=== PATIENT | male | born 1965 | race Caucasian/White ===

== ENCOUNTER 2021-11-13 20:18 | Observation (INO) | payer BC, OTHER ==
[~2021-11-13] VITALS: Ht 185.4 cm; Wt 136.1 kg
[2021-11-13 20:23] VITALS: BP 149/115
--- NOTE | 2021-11-13 20:24 | NUR ---
Patient placed on bed 7.
--- NOTE | 2021-11-13 20:26 | NUR ---
Dr. Pinto examining patient at bedside.
[2021-11-13] MEDS ORDERED: ALBUTEROL SULFATE/IPRATROPIU 3 ML SOL IH ONE (20:30)
--- NOTE | 2021-11-13 20:32 | NUR ---
X-Ray at bedside.
--- NOTE | 2021-11-13 21:06 | NUR ---
NAVARRO RENEE/ RT AWARE
--- NOTE | 2021-11-13 21:40 | NUR ---
NEB TX DONE PT TOLERATED WELL
[2021-11-13] MEDS ORDERED: MORPHINE SULFATE 4 MG/ML SYR IVP ONE ×3 (21:45→23:45)
[2021-11-13] MEDS ORDERED: NACL 0.9% 1,000 ML IV ONE (22:00)
--- NOTE | 2021-11-13 22:02 | NUR ---
spoke to md ashley about bp. stated to hold morphine at this time.
--- NOTE | 2021-11-13 22:30 | NUR ---
Dr. Ulloa examining patient.
--- NOTE | 2021-11-13 22:33 | NUR ---
DR VALLE AT BEDSIDE
[2021-11-13 22:53] LABS: BASOPHILS # (AUTO) 0.1 K/uL (0.00-0.22); BASOPHILS % (AUTO) 0.6 % (0.0-2.0); EOSINOPHILS % (AUTO) 0.3 % (0.0-4.0); HEMOGLOBIN 8.6 g/dL (12.0-18.0); LYMPHOCYTES # (AUTO) 2.3 K/uL (2.0-11.5); LYMPHOCYTES % (AUTO) 20.7 % (20.5-51.1); MEAN CORPUSCULAR HEMOGLOBIN 32 pg (27-31); MEAN CORPUSCULAR HGB CONC 34 g/dL (33-37); MONOCYTES # (AUTO) 1.1 K/uL (0.8-1.0); MONOCYTES % (AUTO) 10.2 % (1.7-9.3); NEUTROPHILS # (AUTO) 7.4 K/uL (1.8-7.7); NEUTROPHILS % (AUTO) 68.2 % (42.2-75.2); PLATELET COUNT (AUTO) 155 K/uL (140-450); RED BLOOD CELL COUNT(AUTO) 2.72 MIL/uL (4.20-6.10); RED CELL DISTRIBUTION WIDTH 15.1 % (11.6-13.7); WHITE BLOOD COUNT (AUTO) 10.9 K/uL (4.8-10.8)
--- NOTE | 2021-11-13 23:18 | NUR ---
56YR OLD MALE BIB EMS C/O ABD/BACK PAIN. S/P MICRO LAMINECTOMY YESTERDAY. PT STATES BEING SOB WITH CP ALL DAY. HX OF COPD. PT IS ON BEDSIDE TAILER OUT. HOB ELEVATED. SPO2 96% 3L NC. SKIN WARM DRY AND INTACT. PT IS A&OX4. BED AT LOWEST POSITION SIDE RAILS UPX2 NKDA COPD HTN
[2021-11-13 23:34] LABS: ALBUMIN 2.7 g/dL (3.4-5.0); ANION GAP 12.8 (8-16); ASPARTATE AMINOTRANSFERASE 25 U/L (15-37); CARBON DIOXIDE 24.4 mmol/L (21-32); CHLORIDE 102 mmol/L (98-107); CREATININE 1.2 mg/dL (0.6-1.3); GFR ARICAN-AMERICAN 81 mL/min (>90); GLUCOSE 105 mg/dL (74-106); POTASSIUM 4.2 mmol/L (3.5-5.1); SODIUM SERUM 135 mmol/L (136-145); TOTAL BILIRUBIN 0.7 mg/dL (0.0-1.0); UREA NITROGEN, BLOOD 22 mg/dL (7-18)
[2021-11-14] MEDS ORDERED: fentaNYL citrate 0.05 MG/ML VIAL IVP ONE ×2 (00:15→05:25)
--- NOTE | 2021-11-14 00:57 | NUR ---
Patient taken to CT scan via gurney.
--- NOTE | 2021-11-14 01:23 | NUR ---
PT BACK FROM CT
--- NOTE | 2021-11-14 03:51 | NUR ---
PENDING CT ABD RESULTS FOR ADMISSION ORDERS. PT IS RESTING IN BED ON BEDSIDE MAINTAINER PLANT. RESP EVEN AND UNLABORED. 07/20 PAIN LEVEL. PT IS TALKING IN FULL SENTENCES DENIES CP OR SOB. HOB ELEVEATED
--- NOTE | 2021-11-14 03:52 | NUR ---
PENDING CT ABD RESULTS FOR ADMISSION ORDERS. PT IS RESTING IN BED ON BEDSIDE COMPOUND MIXER. RESP EVEN AND UNLABORED. 07/20 PAIN LEVEL. PT IS TALKING IN FULL SENTENCES DENIES CP OR SOB. HOB ELEVEATED
--- NOTE | 2021-11-14 05:31 | NUR ---
PAIN LEVEL 10/10. PT REMEDICATED WILL CONTINUE TO MONITOR PT PAIN LEVEL .
[2021-11-14] MEDS ORDERED: POTASSIUM CHLORIDE 10 MEQ TABER PO PRN (05:45)
[2021-11-14] MEDS ORDERED: ONDANSETRON 4 MG/2 ML VIAL IVP PRN (05:45)
[2021-11-14] MEDS ORDERED: MAG SULF 2000 MG/WATER PREMIX 50 ML IV PRN (05:45)
[2021-11-14] MEDS ORDERED: ACETAMINOPHEN 325 MG TAB PO PRN (05:45)
[2021-11-14] MEDS ORDERED: LORazepam 1 MG TAB PO PRN (05:45)
[2021-11-14] MEDS ORDERED: MAGNESIUM OXIDE 400 MG TAB PO PRN (05:45)
[2021-11-14] MEDS ORDERED: KCL 20 MEQ/WATER INJ PREMIX 200 ML IV PRN (05:45)
[2021-11-14] MEDS ORDERED: ZOLPIDEM 5 MG TAB PO PRN (05:45)
[2021-11-14] MEDS ORDERED: HYDROcodone/APAP 5/325 MG 1 TAB TAB PO PRN (05:45)
[2021-11-14] MEDS ORDERED: TRAM50TA1 PO (05:46)
[2021-11-14] MEDS ORDERED: MULT-2253 PO (05:47)
[2021-11-14] MEDS ORDERED: PANT40EC PO (05:47)
[2021-11-14] MEDS ORDERED: FLUO10CA21 PO (05:49)
[2021-11-14] MEDS ORDERED: DIVA500T1 PO (05:50)
[2021-11-14] MEDS ORDERED: BUS5 PO (05:52)
--- NOTE | 2021-11-14 06:12 | NUR ---
The patient's care was reviewed and supervised by Yandy Barrios RN.
--- NOTE | 2021-11-14 06:12 | NUR ---
Patient will be admitted to care of Dr. Hayes. Admited to M/S. Will go to room 125A. Belongings list completed. Report to KATHERINE Hardin.
--- NOTE | 2021-11-14 06:45 | NUR ---
RECEIVED PATIENT FROM ER NURSE VIA LATASHA. PT IS AOX4, ON 3 LNC. PIV ONRIGHT AC 18 G INTACT AND PATENT. VITAL SIGNS WNL. NO DISTRESS NOTED
--- NOTE | 2021-11-14 07:20 | NUR ---
RECEIVED BEDSIDE REPORT FROM [facility] KATHERINE REED FOR CONTINUITY OF CARE. PT IS A&OX4 AND IS CURRENTLY STATING THAT HE HAS PAIN IN HIS ABDOMINAL REGION 09/19. PT HAS INCISIONS ON THE LOWER ABDOMEN WHICH ARE INTACT AND HAVE MINIMAL BLOOD PRESENT, COVERED WITH A CLEAR DRESSING. PT WILL BE MEDICATED WITH PRN PAIN MEDS AVAILABLE. PT HAS AN 18G IV ON THE RIGHT AC WHICH IS PATENT AND INTACT, SALINE LOCKED. PT IS ON 3L O2 VIA NC, SATING AT 97%. PT ORIENTED TO CALL LIGHT. PT IS IN LOWEST POSITION IN BED, AND SAFETY MEASURES ARE IN PLACE.
[2021-11-14 08:00] VITALS: BP 112/59
[2021-11-14] MEDS: DOCUSATE SODIUM 100 MG GELCAP PO SCH (08:27)
[2021-11-14] MEDS: MORPHINE SULFATE 4 MG/ML SYR IVP PRN ×3 (08:28→19:32)
--- NOTE | 2021-11-14 08:30 | NUR ---
GAVE PRN MORPHINE FOR PTS PAIN 8/10 IN THE LOWER ABDOMINAL REGION.
--- NOTE | 2021-11-14 09:30 | NUR ---
PT STATES PAIN IS MANAGEABLE AT 3/10 AT THIS TIME. WILL CONTINUE TO MONITOR PAIN LEVEL.
--- NOTE | 2021-11-14 11:18 | NUR ---
PATIENT HAS BEEN SCREENED AND CATEGORIZED LOW NUTRITION RISK. PATIENT WILL BE SEEN WITHIN 7 DAYS OF ADMISSION. 11/14/21-11/21/[address]
--- NOTE | 2021-11-14 14:32 | NUR ---
DR. SMITH IN TO SEE TO SEE PT. POSSIBLE DISCHARGE TOMORROW. PT COMPLAINED OF 8/10 LOWER ABDOMINAL AND LOWER BACK PAIN. MEDICATED PRN MORPHINE.
[2021-11-14 16:00] VITALS: BP 103/57
--- NOTE | 2021-11-14 16:00 | NUR ---
VISUALLY ASSESSED PT, WHICH IS CURRENTLY RESTING COMFORTABLY WITH NO S/S OF DISTRESS. WILL ASSESS FOR PRESENCE OF PAIN AT A LATER TIME.
[2021-11-14] MEDS: traMADol 50 MG TAB PO SCH (17:58)
--- NOTE | 2021-11-14 18:00 | NUR ---
GAVE PT TRAMADOL FOR PAIN 5/10 IN ABDOMINAL INCISIONS. WILL REASSESS FURTHER
--- NOTE | 2021-11-14 19:25 | NUR ---
ENDORSED PT TO [facility] KATHERINE HAMMOND. PT IN STABLE CONDITION.
--- NOTE | 2021-11-14 19:26 | NUR ---
RECD. RESTING IN BED, AWAKE, A/OX4 OBESE. RESPIRATION EVEN AND UNLABORED. ON AT 3 LITERS VIA N/C. WATCHING TV. IVB SALINE LOCK AT THE LEFT AC PATENT AND INTACT. INCISION IN THE ABDOMEN WITH TEGADERM DRY AND CLEAN, OPEN TO AIR. AMBULATORY TO THE BR. PAIN IN THE ABDOMEN 08/19. WILL MEDICATE PER MD ORDER.
--- NOTE | 2021-11-14 19:32 | NUR ---
PT IS STILL IN PAIN 09/19, ADMINISTERED MORPHINE PRN
--- NOTE | 2021-11-14 19:45 | NUR ---
DISCUSSED AND REVIEWED PATIENT PLAN OF CARE WITH JOSE EDUARDO KING.
--- NOTE | 2021-11-14 20:30 | NUR ---
ON BED, HAVING SOB DUE TO AMBULATING TO THE BR TO VOID. PUT BACK 02 CANNULA. ADVISED TO CALL NURSE WHENEVER NEEDING HELP TO AMBULATE. VERBALIZED UNDERSTANDING.
[2021-11-14] MEDS: DIVALPROEX 500 MG TABEC PO SCH (21:07)
[2021-11-14] MEDS: busPIRone 5 MG TAB PO SCH (21:07)
--- NOTE | 2021-11-14 21:07 | NUR ---
SCHEDULED MEDICATIONS ADMINISTERED. TOLERATED WELL.
[2021-11-15 00:05] VITALS: BP 114/68
[2021-11-15] MEDS: MORPHINE SULFATE 4 MG/ML SYR IVP PRN ×3 (00:07→14:46)
--- NOTE | 2021-11-15 00:07 | NUR ---
COMPLAINED OF ABDOMINAL PAIN 10/20. MEDICATED WITH MORPHINE PER MD ORDER BY CHARGE NURSE ANJEL.
--- NOTE | 2021-11-15 02:00 | NUR ---
SLEEPING COMFORTABLY IN BED. RESPIRATION EVEN AND UNLABORED.
[2021-11-15 04:00] VITALS: BP 112/65
--- NOTE | 2021-11-15 04:00 | NUR ---
ON SUPINE POSITION, STILL SLEEPING COMFORTABLY.
[2021-11-15 05:43] LABS: BASOPHILS % (AUTO) 0.5 % (0.0-2.0); EOSINOPHILS # (AUTO) 0.1 K/uL (0-0.4); EOSINOPHILS % (AUTO) 1.6 % (0.0-4.0); HEMATOCRIT 23.7 % (36-52); LYMPHOCYTES % (AUTO) 23.3 % (20.5-51.1); MEAN CORPUSCULAR HEMOGLOBIN 32 pg (27-31); MEAN CORPUSCULAR HGB CONC 34 g/dL (33-37); MEAN CORPUSCULAR VOLUME 93.2 fL (80-94); MONOCYTES % (AUTO) 12.3 % (1.7-9.3); NEUTROPHILS # (AUTO) 5.3 K/uL (1.8-7.7); NEUTROPHILS % (AUTO) 62.3 % (42.2-75.2); PLATELET COUNT (AUTO) 152 K/uL (140-450); RED BLOOD CELL COUNT(AUTO) 2.54 MIL/uL (4.20-6.10); RED CELL DISTRIBUTION WIDTH 15.5 % (11.6-13.7); WHITE BLOOD COUNT (AUTO) 8.5 K/uL (4.8-10.8)
[2021-11-15 05:47] LABS: ANION GAP 11.4 (8-16); CARBON DIOXIDE 27.9 mmol/L (21-32); POTASSIUM 4.3 mmol/L (3.5-5.1)
--- NOTE | 2021-11-15 06:30 | NUR ---
CHECKED PATIENT, COMFORTABLY ASLEEP IN BED. RESPIRATION EVEN AND UNLABORED. CALL LIGHT IN REACH.
--- NOTE | 2021-11-15 07:20 | NUR ---
RECEIVED BEDSIDE REPORT FROM [facility] KATHERINE HAMMOND FOR CONTINUITY OF CARE. PT IS A&OX4. PT RESTING WITH NO S/S OF DISTRESS. PT HAS INCISIONS ON THE LOWER ABDOMEN WHICH ARE INTACT AND HAVE MINIMAL BLOOD PRESENT, COVERED WITH A CLEAR DRESSING. PT HAS A 20G IV ON THE LEFT AC WHICH IS PATENT AND INTACT, SALINE LOCKED. PT IS ON 3L O2 VIA NC, SATING AT 97%. PT IS IN LOWEST POSITION IN BED, AND SAFETY MEASURES ARE IN PLACE.
--- NOTE | 2021-11-15 07:25 | NUR ---
ABLE TO SLEEP WELL. NO RESPIRATORY DISTRESS NOTED DURING THE SHIFT. ENDORSED TO AM SHIFT NURSE FOR CONTINUITY OF CARE.
[2021-11-15] MEDS: DOCUSATE SODIUM 100 MG GELCAP PO SCH (08:24)
[2021-11-15] MEDS: traMADol 50 MG TAB PO SCH ×2 (08:25→13:00)
[2021-11-15] MEDS: DIVALPROEX 500 MG TABEC PO SCH (08:25)
[2021-11-15] MEDS ORDERED: PANTOPRAZOLE 40 MG TABEC PO SCH (09:00)
[2021-11-15] MEDS ORDERED: FLUoxetine 10 MG CAP PO SCH (09:00)
[2021-11-15] MEDS: busPIRone 5 MG TAB PO SCH (09:54)
--- NOTE | 2021-11-15 10:10 | NUR ---
PT STATED PAIN 7/10 IN ABDOMINAL REGION WHERE INCISIONS ARE PRESENT. ADMINISTERED PRN MORPHINE. WILL FURTHER ASSESS FOR PAIN MANAGEMENT.
--- NOTE | 2021-11-15 10:22 | NUR ---
DC PLANNING SW MET WITH PATIENT AT BEDSIDE TO COMPLETE ASSESSMENT. PATIENT REPORTS RESIDING AT HOME WITH HIS PARTNER AT THE ADDRESS LISTED ON FILE. PATIENT IDENTIFIED MARIAA OROSCO, DAUGHTER, AND KENY JOSEPH, DAUGHTER, EMERGENCY CONTACT. PATIENT DENIES AD IN PLACE AND DECLINED AD OFFERED BY JOSE. PATIENT REPORTS MEETING WITH PCP NEEDED, LAST VISIT; 2 MONTHS AGO. PATIENT DENIES BARRIER IN ACCESSING NEEDED MEDICATIONS AND REPORTS RECEIVING MEDICATION FROM [facility] IN [place], WHEN NEEDED. PATIENT REPORTS BEING AMBULATORY WITH DME ASSISTANCE; FWW, CANE. PATIENT COMPLETES ADL'S INDEPENDENTLY. PATIENT REPORTS MENTAL HEALTH HX OF BIPOLAR D/O. PATIENT REPORTS MEETING WITH PSYCHIATRIST CHRISTAL TWO MONTHS, PATIENT REPORTS HAVING A TELEPHONE APPT 11/14. 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 PATIENT REPORTS DC PLAN IS TO RETURN HOME WHEN MEDICALLY STABLE. PATIENT REPORT HE WILL ARRANGE FOR TRANSPORTATION WITH INSURANCE PROVIDER. SW INQUIRED ON RESOURCES NEED, PATIENT DECLINED.
--- NOTE | 2021-11-15 11:10 | NUR ---
ASSESSED PTS PAIN, PT STATED 3/10 PAIN CURRENTLY. PAIN IS BEING WELL MANAGED, PT RESTING W/O S/S OF DISTRESS.
[2021-11-15 14:00] VITALS: BP 113/73
== END 2021-11-15 15:29 | disposition home or self-care (01) ==
LOC: MED 20:18 → MMU 11-14 05:45
PROVIDERS: ADMIT Hospitalist; ATTEND Hospitalist
DX: M43.22 Fusion of spine, cervical region (principal); Z20.822 Contact with and (suspected) exposure to COVID-19; E66.01 Morbid (severe) obesity due to excess calories; F31.9 Bipolar disorder, unspecified; J44.9 Chronic obstructive pulmonary disease, unspecified; E11.9 Type 2 diabetes mellitus without complications; I10 Essential (primary) hypertension; F17.200 Nicotine dependence, unspecified, uncomplicated; Z79.899 Other long term (current) drug therapy
CPT/HCPCS: 36415; 71045; 71275; 74174; 80048; 80053; 84484; 85025; 85379; 87081; 87426; 93005; 94760; 96361; 96372; 96374; 96375; 96376; 99285; G0378; J1644; J2270; J3010; Q0092; Q9967

== ENCOUNTER 2023-01-16 10:19 | Inpatient (IN) | payer OTHER ==
[~2023-01-16] VITALS: Ht 185.4 cm; Wt 131.5 kg
[2023-01-16] VITALS (11 sets, daily range): BP systolic 118–130; BP diastolic 74–89; PULSE 85–111; RESP 18–26; TEMP 97.1–98.4; O2SAT 90–96
[~2023-01-16 10:19] MED LIST: BUS5 PO; DIVA500T1 PO; FLUO10CA21 PO; MULT-2253 PO; PANT40EC PO; TRAM-748 PO
[2023-01-16] MEDS ORDERED: ALBUTEROL SULFATE/IPRATROPIU 3 ML SOL IH ONE ×5 (10:45→13:35)
[2023-01-16] MEDS ORDERED: methylPREDNISolone SS 125 MG/2 ML VIAL IVP ONE (11:00)
[2023-01-16] MEDS ORDERED: MAG SULF 2000 MG/WATER PREMIX 50 ML IV ONE (11:00)
[2023-01-16] MEDS ORDERED: FUROSEMIDE 40 MG/4 ML VIAL IVP ONE (11:00)
[2023-01-16 11:37] LABS: BASOPHILS # (AUTO) 0.1 K/uL (0.00-0.22); BASOPHILS % (AUTO) 0.5 % (0.0-2.0); EOSINOPHILS # (AUTO) 0.7 K/uL (0-0.4); EOSINOPHILS % (AUTO) 5.7 % (0.0-4.0); HEMATOCRIT 34.3 % (36-52); HEMOGLOBIN 10.4 g/dL (12.0-18.0); LYMPHOCYTES # (AUTO) 3.3 K/uL (2.0-11.5); LYMPHOCYTES % (AUTO) 27.4 % (20.5-51.1); MEAN CORPUSCULAR HEMOGLOBIN 24 pg (27-31); MEAN CORPUSCULAR HGB CONC 30 g/dL (33-37); MEAN CORPUSCULAR VOLUME 78.6 fL (80-94); MONOCYTES % (AUTO) 8.3 % (1.7-9.3); NEUTROPHILS # (AUTO) 6.9 K/uL (1.8-7.7); NEUTROPHILS % (AUTO) 58.1 % (42.2-75.2); PLATELET COUNT (AUTO) 248 K/uL (140-450); RED BLOOD CELL COUNT(AUTO) 4.36 MIL/uL (4.20-6.10); RED CELL DISTRIBUTION WIDTH 22.8 % (11.6-13.7); WHITE BLOOD COUNT (AUTO) 11.9 K/uL (4.8-10.8)
[2023-01-16 11:47] LABS: ANION GAP 6.4 (8-16); CARBON DIOXIDE 31.6 mmol/L (21-32)
[2023-01-16 11:59] LABS: ALANINE AMINOTRANSFERASE 29 U/L (12-78); ALBUMIN 2.8 g/dL (3.4-5.0); ALKALINE PHOSPHATASE 73 U/L (50-136); ASPARTATE AMINOTRANSFERASE 16 U/L (15-37); BILIRUBIN,DIRECT 0.1 mg/dL (0.0-0.3); TOTAL BILIRUBIN 0.3 mg/dL (0.0-1.0); TOTAL PROTEIN, SERUM 6.3 g/dL (6.4-8.2)
[2023-01-16] MEDS ORDERED: AZITHROMYCIN 500 MG in DEXTROSE 5% 250 ML IV ONE (12:00)
[2023-01-16] MEDS ORDERED: LORazepam 2 MG/ML VIAL IVP ONE (12:15)
[2023-01-16] MEDS ORDERED: cefTRIAXone 1,000 MG VIAL ONE (12:18)
[2023-01-16] MEDS ORDERED: AZITHROMYCIN 500 MG INJ VIAL IV ONE (12:18)
[2023-01-16 13:12] LABS: FLU A ANTIGEN negative (NEGATIVE); FLU B ANTIGEN NEGATIVE (NEGATIVE)
[2023-01-16 13:32] LABS: RSV NEGATIVE (NEGATIVE)
[2023-01-16] MEDS ORDERED: ALBUTEROL SULFATE/IPRATROPIU 3 ML SOL IH SCH (13:35)
[2023-01-16] MEDS ORDERED: POTASSIUM CHLORIDE 10 MEQ TABER PO PRN (14:25)
[2023-01-16] MEDS ORDERED: ACETAMINOPHEN 325 MG TAB PO PRN (14:25)
[2023-01-16] MEDS ORDERED: DOCUSATE SODIUM 100 MG GELCAP PO PRN (14:25)
[2023-01-16] MEDS ORDERED: MAG SULF 2000 MG/WATER PREMIX 50 ML IV PRN (14:25)
[2023-01-16] MEDS ORDERED: ZOLPIDEM 10 MG TAB PO PRN (14:25)
[2023-01-16] MEDS ORDERED: ONDANSETRON 4 MG/2 ML VIAL IVP PRN (14:25)
[2023-01-16] MEDS: ALBUTEROL SULFATE/IPRATROPIU 3 ML SOL IH SCH ×2 (19:51→22:53)
[2023-01-16] MEDS: methylPREDNISolone SS 40 MG/ML VIAL IVP SCH (20:34)
[2023-01-16] MEDS: DIVALPROEX 500 MG TABEC PO SCH (20:35)
[2023-01-16] MEDS ORDERED: methylPREDNISolone SS 125 MG/2 ML VIAL IVP SCH (21:00)
[2023-01-16] MEDS ORDERED: methylPREDNISolone SS 40 MG in WATER STERILE 1 ML IV SCH (21:00)
[2023-01-17] VITALS (13 sets, daily range): BP systolic 104–131; BP diastolic 67–88; PULSE 68–97; RESP 16–28; TEMP 96.4–98.2; O2SAT 89–97
[2023-01-17] MEDS: ALBUTEROL SULFATE/IPRATROPIU 3 ML SOL IH SCH ×6 (02:18→22:06)
[2023-01-17] MEDS: methylPREDNISolone SS 40 MG/ML VIAL IVP SCH ×3 (04:56→20:51)
[2023-01-17 05:27] LABS: BASOPHILS % (AUTO) 0.1 % (0.0-2.0); EOSINOPHILS % (AUTO) 0.1 % (0.0-4.0); HEMATOCRIT 36.1 % (36-52); LYMPHOCYTES # (AUTO) 0.5 K/uL (2.0-11.5); LYMPHOCYTES % (AUTO) 10.8 % (20.5-51.1); MEAN CORPUSCULAR HEMOGLOBIN 24 pg (27-31); MEAN CORPUSCULAR HGB CONC 30 g/dL (33-37); MONOCYTES # (AUTO) 0.1 K/uL (0.8-1.0); MONOCYTES % (AUTO) 2.3 % (1.7-9.3); NEUTROPHILS # (AUTO) 4.4 K/uL (1.8-7.7); NEUTROPHILS % (AUTO) 86.7 % (42.2-75.2); PLATELET COUNT (AUTO) 265 K/uL (140-450); RED BLOOD CELL COUNT(AUTO) 4.52 MIL/uL (4.20-6.10); RED CELL DISTRIBUTION WIDTH 23.2 % (11.6-13.7); WHITE BLOOD COUNT (AUTO) 5.1 K/uL (4.8-10.8)
[2023-01-17 05:51] LABS: ALBUMIN 2.8 g/dL (3.4-5.0); ANION GAP 7.2 (8-16); CALCIUM 8.3 mg/dL (8.5-10.1); CARBON DIOXIDE 33.5 mmol/L (21-32); CREATININE 1.1 mg/dL (0.6-1.3); POTASSIUM 4.7 mmol/L (3.5-5.1); TOTAL BILIRUBIN 0.4 mg/dL (0.0-1.0); TOTAL PROTEIN, SERUM 6.6 g/dL (6.4-8.2)
[2023-01-17] MEDS ORDERED: FUROSEMIDE 40 MG/4 ML VIAL IVP SCH (09:00)
[2023-01-17] MEDS: busPIRone 5 MG TAB PO SCH (09:31)
[2023-01-17] MEDS: DIVALPROEX 500 MG TABEC PO SCH ×2 (09:31→20:52)
[2023-01-17] MEDS: PANTOPRAZOLE 40 MG TABEC PO SCH (09:31)
[2023-01-17] MEDS: FLUoxetine 10 MG CAP PO SCH (09:31)
[2023-01-17] MEDS: AZITHROMYCIN 500 MG in DEXTROSE 5% 250 ML IV SCH (09:40)
[2023-01-17] MEDS: MORPHINE SULFATE 2 MG/ML SYR IVP PRN (17:24)
[2023-01-17] MEDS: FUROSEMIDE 40 MG/4 ML VIAL IVP SCH (20:50)
[2023-01-18] VITALS (9 sets, daily range): BP systolic 110–111; BP diastolic 63–66; PULSE 72–118; RESP 18–28; TEMP 97–97.1; O2SAT 88–97
[2023-01-18] MEDS: ALBUTEROL SULFATE/IPRATROPIU 3 ML SOL IH SCH ×4 (03:50→14:54)
[2023-01-18] MEDS: MORPHINE SULFATE 2 MG/ML SYR IVP PRN ×3 (04:15→14:29)
[2023-01-18] MEDS: methylPREDNISolone SS 40 MG/ML VIAL IVP SCH ×2 (05:00→14:25)
[2023-01-18 07:04] LABS: HEMATOCRIT 34.6 % (36-52); HEMOGLOBIN 10.8 g/dL (12.0-18.0); LYMPHOCYTES # (AUTO) 0.6 K/uL (2.0-11.5); LYMPHOCYTES % (AUTO) 7.3 % (20.5-51.1); MEAN CORPUSCULAR HEMOGLOBIN 24 pg (27-31); MEAN CORPUSCULAR HGB CONC 31 g/dL (33-37); MEAN CORPUSCULAR VOLUME 78.6 fL (80-94); MONOCYTES # (AUTO) 0.6 K/uL (0.8-1.0); MONOCYTES % (AUTO) 7.8 % (1.7-9.3); NEUTROPHILS # (AUTO) 6.6 K/uL (1.8-7.7); NEUTROPHILS % (AUTO) 84.9 % (42.2-75.2); PLATELET COUNT (AUTO) 268 K/uL (140-450); RED BLOOD CELL COUNT(AUTO) 4.41 MIL/uL (4.20-6.10); RED CELL DISTRIBUTION WIDTH 24.6 % (11.6-13.7); WHITE BLOOD COUNT (AUTO) 7.7 K/uL (4.8-10.8)
[2023-01-18 07:30] LABS: ALBUMIN 2.8 g/dL (3.4-5.0); ANION GAP 8.1 (8-16); CALCIUM 8.3 mg/dL (8.5-10.1); CARBON DIOXIDE 34.7 mmol/L (21-32); CREATININE 1.1 mg/dL (0.6-1.3); POTASSIUM 4.8 mmol/L (3.5-5.1); TOTAL BILIRUBIN 0.3 mg/dL (0.0-1.0); TOTAL PROTEIN, SERUM 6.5 g/dL (6.4-8.2)
[2023-01-18] MEDS ORDERED: METOPROLOL SUCCINATE 50 MG TABER PO SCH (09:00)
[2023-01-18] MEDS ORDERED: SPIRONOLACTONE 25 MG TAB PO SCH (09:00)
[2023-01-18] MEDS: FUROSEMIDE 40 MG/4 ML VIAL IVP SCH (09:00)
[2023-01-18] MEDS: AZITHROMYCIN 500 MG in DEXTROSE 5% 250 ML IV SCH (09:38)
[2023-01-18] MEDS: busPIRone 5 MG TAB PO SCH (09:40)
[2023-01-18] MEDS: PANTOPRAZOLE 40 MG TABEC PO SCH (09:40)
[2023-01-18] MEDS: FLUoxetine 10 MG CAP PO SCH (09:40)
[2023-01-18] MEDS: DIVALPROEX 500 MG TABEC PO SCH (09:55)
[2023-01-18] MEDS ORDERED: FURO-570 PO (14:32)
[2023-01-18] MEDS ORDERED: METO50TE2 PO (14:32)
[2023-01-18] MEDS ORDERED: SPIR25TA PO (14:32)
[2023-01-18] MEDS ORDERED: LEVO750T75 PO (14:32)
[2023-01-18] MEDS ORDERED: PRED20TA5 PO (14:32)
[2023-01-18] MEDS ORDERED: ATRMDI IH (14:37)
[2023-01-18] MEDS ORDERED: ALBU0.0912 INH (14:37)
== END 2023-01-18 15:15 | DRG 190 ==
LOC: MED 10:19 → MTU 13:25
PROVIDERS: ADMIT Family Medicine; ATTEND Family Medicine
DX: J44.1 Chronic obstructive pulmonary disease with (acute) exacerbation (principal); J18.9 Pneumonia, unspecified organism; E46 Unspecified protein-calorie malnutrition; R65.10 Systemic inflammatory response syndrome (SIRS) of non-infectious origin without acute organ dysfunction; J44.0 Chronic obstructive pulmonary disease with (acute) lower respiratory infection; I11.0 Hypertensive heart disease with heart failure; I50.9 Heart failure, unspecified; Z20.822 Contact with and (suspected) exposure to COVID-19; D64.9 Anemia, unspecified; Z68.38 Body mass index [BMI] 38.0-38.9, adult
CPT/HCPCS: 36415; 71045; 80048; 80053; 80076; 83605; 83880; 84484; 85025; 87040; 87420; 93005; 94640; 96365; 96375; 99291; J0456; J0696; J1644; J1940; J2060; J2270; J2920; J2930; J3475; J7060

== ENCOUNTER 2023-01-23 17:56 | Inpatient (IN) | payer OTHER ==
[~2023-01-23] VITALS: Ht 177.8 cm; Wt 136.1 kg
[~2023-01-23 17:56] MED LIST changes: +ALBU0.0912 INH; +ATRMDI IH; +FURO-570 PO; +LEVO750T75 PO; +METO50TE2 PO; +PRED20TA5 PO; +SPIR25TA PO
[2023-01-23] MEDS ORDERED: ALBUTEROL 0.083% 2.5 MG/3 ML NEBU INH ONE (18:05)
[2023-01-23] MEDS ORDERED: ALBUTEROL SULFATE/IPRATROPIU 3 ML SOL IH ONE (18:05)
[2023-01-23 18:07] VITALS: BP 118/83; PULSE 104; RESP 22; TEMP 98; O2SAT 95
[2023-01-23 18:17] VITALS: BP 105/71; PULSE 101; RESP 31; RESP 33; O2SAT 96; O2SAT 98
[2023-01-23] MEDS ORDERED: FUROSEMIDE 100 MG/10 ML VIAL IVP ONE (18:20)
[2023-01-23] MEDS ORDERED: MORPHINE SULFATE 4 MG/ML SYR IVP ONE (18:30)
[2023-01-23 18:34] LABS: BASOPHILS # (AUTO) 0.1 K/uL (0.00-0.22); BASOPHILS % (AUTO) 0.6 % (0.0-2.0); EOSINOPHILS % (AUTO) 0.3 % (0.0-4.0); HEMATOCRIT 40.8 % (36-52); HEMOGLOBIN 12.7 g/dL (12.0-18.0); MEAN CORPUSCULAR HEMOGLOBIN 25 pg (27-31); MEAN CORPUSCULAR HGB CONC 31 g/dL (33-37); MEAN CORPUSCULAR VOLUME 81.3 fL (80-94); MONOCYTES # (AUTO) 0.8 K/uL (0.8-1.0); MONOCYTES % (AUTO) 7.2 % (1.7-9.3); NEUTROPHILS # (AUTO) 8.9 K/uL (1.8-7.7); NEUTROPHILS % (AUTO) 82.9 % (42.2-75.2); PLATELET COUNT (AUTO) 206 K/uL (140-450); RED BLOOD CELL COUNT(AUTO) 5.02 MIL/uL (4.20-6.10); RED CELL DISTRIBUTION WIDTH 27.3 % (11.6-13.7); WHITE BLOOD COUNT (AUTO) 10.7 K/uL (4.8-10.8)
[2023-01-23] MEDS ORDERED: cefTRIAXone 1,000 MG in DEXT 5% MINI-BAG PLUS 50 ML IV ONE (18:35)
[2023-01-23] MEDS ORDERED: cefTRIAXone 1,000 MG VIAL ONE (18:38)
[2023-01-23 18:42] LABS: ANION GAP 11.9 (8-16); CARBON DIOXIDE 33.9 mmol/L (21-32); CREATININE 1.4 mg/dL (0.6-1.3); POTASSIUM 3.8 mmol/L (3.5-5.1)
[2023-01-23] MEDS ORDERED: LORazepam 2 MG/ML VIAL IVP ONE (18:55)
[2023-01-23] MEDS ORDERED: ONDANSETRON 4 MG/2 ML VIAL IVP PRN (19:10)
[2023-01-23] MEDS ORDERED: LORazepam 1 MG TAB PO PRN (19:10)
[2023-01-23] MEDS ORDERED: ACETAMINOPHEN 325 MG TAB PO PRN (19:10)
[2023-01-23 19:38] LABS: LACTIC ACID 2.3 mmol/L (0.4-2.0)
[2023-01-23] MEDS ORDERED: ALPRAZolam 0.25 MG TAB PO PRN (19:50)
[2023-01-23] MEDS ORDERED: ALPRAZolam 0.5 MG TAB ONE (20:15)
[2023-01-23 21:12] LABS: FLU A ANTIGEN negative (NEGATIVE); FLU B ANTIGEN negative (NEGATIVE)
[2023-01-23] MEDS: methylPREDNISolone SS 125 MG/2 ML VIAL IVP SCH (21:29)
[2023-01-23] MEDS: FUROSEMIDE 20 MG/2 ML VIAL IVP SCH (21:30)
[2023-01-23 22:56] VITALS: PULSE 97; O2SAT 95
[2023-01-24] VITALS (11 sets, daily range): BP systolic 110–144; BP diastolic 64–93; PULSE 52–106; RESP 20–29; O2SAT 92–100
[2023-01-24] MEDS ORDERED: MORPHINE SULFATE 2 MG/ML SYR ONE (00:02)
[2023-01-24] MEDS: MORPHINE SULFATE 2 MG/ML SYR IVP PRN ×3 (00:10→20:45)
[2023-01-24] MEDS: LEVALBUTEROL 0.63 MG/3 ML NEBU INH SCH ×4 (01:00→19:41)
[2023-01-24] MEDS: methylPREDNISolone SS 125 MG/2 ML VIAL IVP SCH (05:52)
[2023-01-24 07:27] LABS: BASOPHILS % (AUTO) 0.3 % (0.0-2.0); HEMATOCRIT 40.8 % (36-52); HEMOGLOBIN 12.6 g/dL (12.0-18.0); LYMPHOCYTES # (AUTO) 0.7 K/uL (2.0-11.5); LYMPHOCYTES % (AUTO) 8.1 % (20.5-51.1); MEAN CORPUSCULAR HEMOGLOBIN 25 pg (27-31); MEAN CORPUSCULAR HGB CONC 31 g/dL (33-37); MEAN CORPUSCULAR VOLUME 81.5 fL (80-94); MONOCYTES # (AUTO) 0.4 K/uL (0.8-1.0); MONOCYTES % (AUTO) 4.5 % (1.7-9.3); NEUTROPHILS # (AUTO) 7.5 K/uL (1.8-7.7); NEUTROPHILS % (AUTO) 87.1 % (42.2-75.2); PLATELET COUNT (AUTO) 198 K/uL (140-450); RED CELL DISTRIBUTION WIDTH 26.6 % (11.6-13.7); WHITE BLOOD COUNT (AUTO) 8.6 K/uL (4.8-10.8)
[2023-01-24] MEDS ORDERED: cefTRIAXone 1,000 MG VIAL ONE (07:55)
[2023-01-24] MEDS ORDERED: DIVALPROEX 500 MG TABEC PO ONE (08:08)
[2023-01-24 08:15] LABS: ANION GAP 13.1 (8-16); CALCIUM 8.3 mg/dL (8.5-10.1); CARBON DIOXIDE 32.3 mmol/L (21-32); CREATININE 1.2 mg/dL (0.6-1.3); POTASSIUM 4.4 mmol/L (3.5-5.1)
[2023-01-24] MEDS: busPIRone 5 MG TAB PO SCH (08:18)
[2023-01-24] MEDS: PANTOPRAZOLE 40 MG TABEC PO SCH (08:18)
[2023-01-24] MEDS: FUROSEMIDE 20 MG/2 ML VIAL IVP SCH ×2 (08:18→22:30)
[2023-01-24] MEDS: SPIRONOLACTONE 25 MG TAB PO SCH (08:18)
[2023-01-24] MEDS: DIVALPROEX 500 MG TABER PO SCH (08:18)
[2023-01-24] MEDS: METOPROLOL SUCCINATE 50 MG TABER PO SCH (08:19)
[2023-01-24] MEDS: ENOXAPARIN 40 MG/0.4 ML SYR SUBQ SCH (08:19)
[2023-01-24] MEDS: FLUoxetine 10 MG CAP PO SCH (08:19)
[2023-01-24] MEDS: HYDROcodone/APAP 5/325 MG 1 TAB TAB PO PRN ×2 (10:12→13:11)
[2023-01-24 13:29] LABS: BLOOD GAS PH 7.403 (7.35-7.45)
[2023-01-24 13:30] LABS: BLOOD GAS HCO3 34.6 mmol/L (22-26); BLOOD GAS PCO2 56.8 mmHg (35-45); BLOOD GAS PO2 75.2 mmHg (75-100)
[2023-01-24] MEDS: methylPREDNISolone SS 40 MG/ML VIAL IVP SCH (22:29)
[2023-01-25 00:07] VITALS: BP 112/68; PULSE 103; O2SAT 97
[2023-01-25 00:48] VITALS: PULSE 62; RESP 21; O2SAT 95
[2023-01-25] MEDS: LEVALBUTEROL 0.63 MG/3 ML NEBU INH SCH ×3 (00:48→13:59)
[2023-01-25 04:40] VITALS: BP 109/73; PULSE 68; O2SAT 100
[2023-01-25] MEDS: methylPREDNISolone SS 40 MG/ML VIAL IVP SCH (05:21)
[2023-01-25 07:38] LABS: BASOPHILS % (AUTO) 0.4 % (0.0-2.0); HEMATOCRIT 37.5 % (36-52); HEMOGLOBIN 11.6 g/dL (12.0-18.0); LYMPHOCYTES # (AUTO) 1.1 K/uL (2.0-11.5); LYMPHOCYTES % (AUTO) 15.1 % (20.5-51.1); MEAN CORPUSCULAR HEMOGLOBIN 25 pg (27-31); MEAN CORPUSCULAR HGB CONC 31 g/dL (33-37); MEAN CORPUSCULAR VOLUME 81.6 fL (80-94); MONOCYTES # (AUTO) 0.4 K/uL (0.8-1.0); NEUTROPHILS # (AUTO) 5.7 K/uL (1.8-7.7); NEUTROPHILS % (AUTO) 78.5 % (42.2-75.2); PLATELET COUNT (AUTO) 175 K/uL (140-450); RED BLOOD CELL COUNT(AUTO) 4.59 MIL/uL (4.20-6.10); WHITE BLOOD COUNT (AUTO) 7.3 K/uL (4.8-10.8)
[2023-01-25 07:50] LABS: ANION GAP 6.8 (8-16); CALCIUM 8.6 mg/dL (8.5-10.1); CARBON DIOXIDE 35.7 mmol/L (21-32); CREATININE 1.1 mg/dL (0.6-1.3); POTASSIUM 4.5 mmol/L (3.5-5.1)
[2023-01-25] MEDS: MORPHINE SULFATE 2 MG/ML SYR IVP PRN ×2 (07:55→12:12)
[2023-01-25 07:59] VITALS: BP 114/69; PULSE 57; PULSE 59; RESP 23; O2SAT 98; O2SAT 99
[2023-01-25 08:59] VITALS: O2SAT 93
[2023-01-25] MEDS: FUROSEMIDE 20 MG/2 ML VIAL IVP SCH (09:05)
[2023-01-25] MEDS: SPIRONOLACTONE 25 MG TAB PO SCH (09:05)
[2023-01-25] MEDS: busPIRone 5 MG TAB PO SCH (09:07)
[2023-01-25] MEDS: PANTOPRAZOLE 40 MG TABEC PO SCH (09:08)
[2023-01-25] MEDS: FLUoxetine 10 MG CAP PO SCH (09:08)
[2023-01-25] MEDS ORDERED: cefTRIAXone 1,000 MG VIAL ONE (09:11)
[2023-01-25] MEDS ORDERED: DIVALPROEX 500 MG TABEC PO ONE (09:11)
[2023-01-25] MEDS: DIVALPROEX 500 MG TABER PO SCH (09:15)
[2023-01-25] MEDS: ENOXAPARIN 40 MG/0.4 ML SYR SUBQ SCH (09:17)
[2023-01-25] MEDS: METOPROLOL SUCCINATE 50 MG TABER PO SCH (09:22)
[2023-01-25] MEDS ORDERED: METH4TAB1 PO (10:17)
[2023-01-25 13:37] VITALS: BP 134/76; PULSE 70; RESP 18; TEMP 97.8; O2SAT 97
== END 2023-01-25 12:30 | disposition home or self-care (01) | DRG 177 ==
LOC: MED 17:56 → MTU 19:18
PROVIDERS: ADMIT Internal Medicine; ATTEND Internal Medicine
PROC: 5A09457 Assistance with Respiratory Ventilation, 24-96 Consecutive Hours, Continuous Positive Airway Pressure (ICD-10-PCS; principal; 2023-01-23)
DX: J69.0 Pneumonitis due to inhalation of food and vomit (principal); I50.41 Acute combined systolic (congestive) and diastolic (congestive) heart failure; J96.21 Acute and chronic respiratory failure with hypoxia; J44.1 Chronic obstructive pulmonary disease with (acute) exacerbation; Z68.41 Body mass index [BMI] 40.0-44.9, adult; R65.10 Systemic inflammatory response syndrome (SIRS) of non-infectious origin without acute organ dysfunction; E66.9 Obesity, unspecified; I11.0 Hypertensive heart disease with heart failure; Z20.822 Contact with and (suspected) exposure to COVID-19; D64.9 Anemia, unspecified; Z79.899 Other long term (current) drug therapy
CPT/HCPCS: 36415; 71045; 80048; 83605; 83880; 84484; 85025; 87040; 93005; 94640; 96365; 96375; 99285; J0696; J1650; J1940; J2060; J2270; J2920; J2930; J7060; J7613; J7614

== ENCOUNTER 2023-02-21 07:11 | Inpatient (IN) | payer OTHER ==
[2023-02-21] VITALS (9 sets, daily range): BP systolic 126–145; BP diastolic 79–92; PULSE 70–94; RESP 16–27; TEMP 97.9–98; O2SAT 93–99
[~2023-02-21] VITALS: Ht 185.4 cm; Wt 153.3 kg
[~2023-02-21 07:11] MED LIST changes: +METH4TAB1 PO; -PRED20TA5 PO
[2023-02-21] MEDS ORDERED: IPRATROPIUM 0.02% 0.5 MG/2.5 ML NEBU INH ONE (07:40)
[2023-02-21] MEDS ORDERED: ACETAMINOPHEN 325 MG TAB PO ONE (07:40)
[2023-02-21] MEDS ORDERED: ALBUTEROL 0.083% 2.5 MG/3 ML NEBU INH ONE (07:40)
[2023-02-21] MEDS ORDERED: methylPREDNISolone SS 125 MG/2 ML VIAL IVP ONE (07:45)
[2023-02-21 07:56] LABS: HEMATOCRIT 42.7 % (36-52); HEMOGLOBIN 13.7 g/dL (12.0-18.0); MEAN CORPUSCULAR HEMOGLOBIN 29 pg (27-31); MEAN CORPUSCULAR HGB CONC 32 g/dL (33-37); MEAN CORPUSCULAR VOLUME 89.7 fL (80-94); PLATELET COUNT (AUTO) 168 K/uL (140-450); RED BLOOD CELL COUNT(AUTO) 4.76 MIL/uL (4.20-6.10); RED CELL DISTRIBUTION WIDTH 27.7 % (11.6-13.7); WHITE BLOOD COUNT (AUTO) 13.5 K/uL (4.8-10.8)
[2023-02-21 08:08] LABS: ANION GAP 8.7 (8-16); CALCIUM 8.5 mg/dL (8.5-10.1); CREATININE 1.1 mg/dL (0.6-1.3); POTASSIUM 3.7 mmol/L (3.5-5.1)
[2023-02-21 08:14] LABS: BASOPHILS % (MANUAL) 0 % (0-2); BLASTS, MANUAL % 0 % (0-0); EOSINOPHILS % (MANUAL) 2 % (0-4); LYMPHOCYTES % (MANUAL) 25 % (20-46); METAMYELOCYTES % 0 % (0-0); MONOCYTES % (MANUAL) 10 % (5-12); MYELOCYTES % 0 % (0-0); PROMYELOCYTES % 0 % (0-0)
[2023-02-21 08:15] LABS: ANISOCYTOSIS 3+; OTHER CELLS,MANUAL % 0 (0-0); OVALOCYTES 1+; PLATELET ESTIMATE ADEQUATE; TEAR DROP CELLS 1+
[2023-02-21] MEDS: ACETAMINOPHEN 325 MG TAB PO ONE ×2 (08:15→08:20)
[2023-02-21 08:16] LABS: ALANINE AMINOTRANSFERASE 31 U/L (12-78); ALBUMIN 2.8 g/dL (3.4-5.0); ALKALINE PHOSPHATASE 78 U/L (50-136); ASPARTATE AMINOTRANSFERASE 22 U/L (15-37); BILIRUBIN,DIRECT 0.1 mg/dL (0.0-0.3); LIPASE 16 U/L (16-77); TOTAL BILIRUBIN 0.2 mg/dL (0.0-1.0); TOTAL PROTEIN, SERUM 7.4 g/dL (6.4-8.2)
[2023-02-21] MEDS ORDERED: FUROSEMIDE 40 MG/4 ML VIAL IVP ONE ×2 (08:30→11:00)
[2023-02-21] MEDS ORDERED: ONDANSETRON 4 MG/2 ML VIAL IVP PRN (09:35)
[2023-02-21] MEDS ORDERED: ALBUTEROL SULFATE/IPRATROPIU 3 ML SOL IH PRN (09:35)
[2023-02-21] MEDS ORDERED: ACETAMINOPHEN 325 MG TAB PO PRN ×2 (09:35→14:35)
[2023-02-21 10:44] LABS: BLOOD GAS PCO2 55.9 mmHg (35-45)
[2023-02-21 10:45] LABS: BLOOD GAS BASE EXCESS 6.3 mmol/L (-2.0-2.0); BLOOD GAS HCO3 33.1 mmol/L (22-26); BLOOD GAS O2 SAT% 79.3 % (92.0-98.5); BLOOD GAS PO2 43.9 mmHg (75-100)
[2023-02-21] MEDS ORDERED: cefTRIAXone 1,000 MG VIAL ONE (11:00)
[2023-02-21] MEDS ORDERED: METOPROLOL SUCCINATE 50 MG TABER PO ONE (11:04)
[2023-02-21] MEDS ORDERED: busPIRone 5 MG TAB ONE (11:04)
[2023-02-21] MEDS ORDERED: SPIRONOLACTONE 25 MG TAB ONE (11:05)
[2023-02-21] MEDS ORDERED: PANTOPRAZOLE 40 MG TABEC PO ONE (11:05)
[2023-02-21] MEDS ORDERED: FLUoxetine 20 MG CAP ONE (11:05)
[2023-02-21] MEDS ORDERED: DIVALPROEX 500 MG TABEC PO ONE (11:05)
[2023-02-21] MEDS: busPIRone 5 MG TAB PO SCH (11:15)
[2023-02-21] MEDS: ALBUTEROL SULFATE/IPRATROPIU 3 ML SOL IH SCH ×4 (11:54→23:12)
[2023-02-21] MEDS: LEVOFLOXACIN 750 MG/D5W PREMIX 150 ML IV SCH (12:14)
[2023-02-21] MEDS: HYDROcodone/APAP 5/325 MG 1 TAB TAB PO PRN (13:16)
[2023-02-21] MEDS ORDERED: POTASSIUM CHLORIDE 10 MEQ TABER PO PRN (14:35)
[2023-02-21] MEDS ORDERED: DOCUSATE SODIUM 100 MG GELCAP PO PRN (14:35)
[2023-02-21] MEDS ORDERED: MAG SULF 2000 MG/WATER PREMIX 50 ML IV PRN (14:35)
[2023-02-21] MEDS ORDERED: ZOLPIDEM 10 MG TAB PO PRN (14:35)
[2023-02-21] MEDS: BUDESONIDE 0.5 MG/2 ML NEBU INH SCH (19:22)
[2023-02-21 23:55] LABS: FLU B ANTIGEN negative (NEGATIVE)
[2023-02-22] VITALS (13 sets, daily range): BP systolic 107–132; BP diastolic 66–90; PULSE 66–88; RESP 14–26; TEMP 96.7–98.2; O2SAT 95–99
[2023-02-22 00:02] LABS: FLU A ANTIGEN POSITIVE (NEGATIVE)
[2023-02-22] MEDS: methylPREDNISolone SS 40 MG/ML VIAL IVP SCH ×4 (00:27→20:34)
[2023-02-22] MEDS: FUROSEMIDE 40 MG/4 ML VIAL IVP SCH ×3 (00:29→22:48)
[2023-02-22] MEDS: ALBUTEROL SULFATE/IPRATROPIU 3 ML SOL IH SCH ×5 (03:32→23:17)
[2023-02-22] MEDS: BUDESONIDE 0.5 MG/2 ML NEBU INH SCH ×2 (06:52→19:14)
[2023-02-22] MEDS: OSELTAMIVIR PHOSPHATE 75 MG CAP PO SCH ×2 (09:35→20:38)
[2023-02-22] MEDS: FLUoxetine 10 MG CAP PO SCH (09:36)
[2023-02-22] MEDS: DIVALPROEX 500 MG TABER PO SCH (09:36)
[2023-02-22] MEDS: busPIRone 5 MG TAB PO SCH (09:37)
[2023-02-22] MEDS: PANTOPRAZOLE 40 MG INJ VIAL IVP SCH (09:39)
[2023-02-22] MEDS: METOPROLOL SUCCINATE 50 MG TABER PO SCH (09:39)
[2023-02-22] MEDS: SPIRONOLACTONE 25 MG TAB PO SCH (09:39)
[2023-02-22] MEDS: MORPHINE SULFATE 2 MG/ML SYR IVP PRN ×2 (09:43→20:39)
[2023-02-22 10:20] LABS: BASOPHILS % (AUTO) 0.2 % (0.0-2.0); EOSINOPHILS % (AUTO) 0.1 % (0.0-4.0); HEMATOCRIT 42.8 % (36-52); HEMOGLOBIN 13.7 g/dL (12.0-18.0); LYMPHOCYTES # (AUTO) 0.7 K/uL (2.0-11.5); MEAN CORPUSCULAR HEMOGLOBIN 29 pg (27-31); MEAN CORPUSCULAR HGB CONC 32 g/dL (33-37); MEAN CORPUSCULAR VOLUME 90.6 fL (80-94); MONOCYTES # (AUTO) 0.6 K/uL (0.8-1.0); MONOCYTES % (AUTO) 8.1 % (1.7-9.3); NEUTROPHILS # (AUTO) 6.1 K/uL (1.8-7.7); NEUTROPHILS % (AUTO) 81.6 % (42.2-75.2); PLATELET COUNT (AUTO) 170 K/uL (140-450); RED BLOOD CELL COUNT(AUTO) 4.73 MIL/uL (4.20-6.10); RED CELL DISTRIBUTION WIDTH 27.6 % (11.6-13.7); WHITE BLOOD COUNT (AUTO) 7.5 K/uL (4.8-10.8)
[2023-02-22 10:38] LABS: ANION GAP 8.9 (8-16); CALCIUM 9.2 mg/dL (8.5-10.1); CARBON DIOXIDE 37.9 mmol/L (21-32); CREATININE 1.1 mg/dL (0.6-1.3); POTASSIUM 4.8 mmol/L (3.5-5.1)
[2023-02-22] MEDS: LEVOFLOXACIN 750 MG/D5W PREMIX 150 ML IV SCH (12:28)
[2023-02-22] MEDS: LORazepam 2 MG/ML VIAL IVP PRN ×2 (12:31→19:28)
[2023-02-22 17:10] LABS: APPEARANCE,URINE CLEAR (CLEAR); BILIRUBIN,URINE NEGATIVE (NEGATIVE); BLOOD, URINE NEGATIVE (NEGATIVE); COLOR,URINE YELLOW (YELLOW); LEUKOCYTE ESTERASE ,URINE NEGATIVE (NEGATIVE); NITRITE, URINE NEGATIVE (NEGATIVE); PH,URINE 6.5 (5.0-9.0); PROTEIN,URINE NEGATIVE (NEGATIVE); UGLUCOSE NEGATIVE (NEGATIVE); UROBILINOGEN,URINE 0.2 EU/dL (0.2 - 1)
[2023-02-22] MEDS: HYDROcodone/APAP 5/325 MG 1 TAB TAB PO PRN (18:46)
[2023-02-23] VITALS (15 sets, daily range): BP systolic 110–131; BP diastolic 68–87; PULSE 64–93; RESP 18–24; TEMP 96.9–97.7; O2SAT 94–99
[2023-02-23] MEDS: MORPHINE SULFATE 2 MG/ML SYR IVP PRN ×5 (01:01→23:13)
[2023-02-23] MEDS: ALBUTEROL SULFATE/IPRATROPIU 3 ML SOL IH SCH ×6 (03:26→23:08)
[2023-02-23] MEDS: methylPREDNISolone SS 40 MG/ML VIAL IVP SCH ×3 (04:28→20:57)
[2023-02-23] MEDS ORDERED: METH4TAB1 PO (07:35)
[2023-02-23] MEDS ORDERED: TAM75 PO (07:35)
[2023-02-23] MEDS: BUDESONIDE 0.5 MG/2 ML NEBU INH SCH ×2 (08:10→19:09)
[2023-02-23] MEDS: FLUoxetine 10 MG CAP PO SCH (09:07)
[2023-02-23] MEDS: OSELTAMIVIR PHOSPHATE 75 MG CAP PO SCH ×2 (09:07→20:57)
[2023-02-23] MEDS: DIVALPROEX 500 MG TABER PO SCH (09:08)
[2023-02-23] MEDS: METOPROLOL SUCCINATE 50 MG TABER PO SCH (09:08)
[2023-02-23] MEDS: SPIRONOLACTONE 25 MG TAB PO SCH (09:08)
[2023-02-23 09:10] LABS: BASOPHILS # (AUTO) 0.1 K/uL (0.00-0.22); BASOPHILS % (AUTO) 0.7 % (0.0-2.0); EOSINOPHILS % (AUTO) 0.1 % (0.0-4.0); HEMATOCRIT 43.5 % (36-52); HEMOGLOBIN 13.7 g/dL (12.0-18.0); LYMPHOCYTES # (AUTO) 1.1 K/uL (2.0-11.5); LYMPHOCYTES % (AUTO) 11.5 % (20.5-51.1); MEAN CORPUSCULAR HEMOGLOBIN 29 pg (27-31); MEAN CORPUSCULAR HGB CONC 32 g/dL (33-37); MEAN CORPUSCULAR VOLUME 91.1 fL (80-94); MONOCYTES # (AUTO) 0.4 K/uL (0.8-1.0); MONOCYTES % (AUTO) 4.4 % (1.7-9.3); NEUTROPHILS # (AUTO) 8.2 K/uL (1.8-7.7); NEUTROPHILS % (AUTO) 83.3 % (42.2-75.2); PLATELET COUNT (AUTO) 169 K/uL (140-450); RED BLOOD CELL COUNT(AUTO) 4.77 MIL/uL (4.20-6.10); RED CELL DISTRIBUTION WIDTH 27.2 % (11.6-13.7); WHITE BLOOD COUNT (AUTO) 9.9 K/uL (4.8-10.8)
[2023-02-23] MEDS: busPIRone 5 MG TAB PO SCH (09:10)
[2023-02-23] MEDS: HYDROcodone/APAP 5/325 MG 1 TAB TAB PO PRN (09:15)
[2023-02-23 09:16] LABS: ANION GAP 6.6 (8-16); CALCIUM 9.3 mg/dL (8.5-10.1); CARBON DIOXIDE 40.2 mmol/L (21-32); CREATININE 1.4 mg/dL (0.6-1.3); POTASSIUM 4.8 mmol/L (3.5-5.1)
[2023-02-23] MEDS: FUROSEMIDE 40 MG/4 ML VIAL IVP SCH (09:58)
[2023-02-23] MEDS: PANTOPRAZOLE 40 MG INJ VIAL IVP SCH (09:58)
[2023-02-23] MEDS: LEVOFLOXACIN 750 MG/D5W PREMIX 150 ML IV SCH (13:15)
[2023-02-23] MEDS: LORazepam 2 MG/ML VIAL IVP PRN (13:46)
[2023-02-24] VITALS (9 sets, daily range): BP systolic 109–131; BP diastolic 73–87; PULSE 68–85; RESP 18–21; TEMP 96.9–97; O2SAT 95–98
[2023-02-24] MEDS: ALBUTEROL SULFATE/IPRATROPIU 3 ML SOL IH SCH ×2 (03:49→07:45)
[2023-02-24] MEDS: methylPREDNISolone SS 40 MG/ML VIAL IVP SCH (04:59)
[2023-02-24] MEDS: MORPHINE SULFATE 2 MG/ML SYR IVP PRN (05:08)
[2023-02-24] MEDS: BUDESONIDE 0.5 MG/2 ML NEBU INH SCH (07:45)
[2023-02-24] MEDS: PANTOPRAZOLE 40 MG INJ VIAL IVP SCH (08:34)
[2023-02-24] MEDS: busPIRone 5 MG TAB PO SCH (08:34)
[2023-02-24] MEDS: FLUoxetine 10 MG CAP PO SCH (08:35)
[2023-02-24] MEDS: DIVALPROEX 500 MG TABER PO SCH (08:35)
[2023-02-24] MEDS: METOPROLOL SUCCINATE 50 MG TABER PO SCH (08:36)
[2023-02-24] MEDS: SPIRONOLACTONE 25 MG TAB PO SCH (08:36)
[2023-02-24] MEDS: OSELTAMIVIR PHOSPHATE 75 MG CAP PO SCH (08:38)
[2023-02-24] MEDS ORDERED: FUROSEMIDE 40 MG/4 ML VIAL IVP SCH (09:00)
[2023-02-24 09:51] LABS: BASOPHILS # (AUTO) 0.1 K/uL (0.00-0.22); BASOPHILS % (AUTO) 0.6 % (0.0-2.0); EOSINOPHILS # (AUTO) 0.1 K/uL (0-0.4); EOSINOPHILS % (AUTO) 0.6 % (0.0-4.0); HEMATOCRIT 45.2 % (36-52); HEMOGLOBIN 14.4 g/dL (12.0-18.0); LYMPHOCYTES # (AUTO) 0.8 K/uL (2.0-11.5); LYMPHOCYTES % (AUTO) 8.3 % (20.5-51.1); MEAN CORPUSCULAR HEMOGLOBIN 29 pg (27-31); MEAN CORPUSCULAR HGB CONC 32 g/dL (33-37); MEAN CORPUSCULAR VOLUME 91.7 fL (80-94); MONOCYTES # (AUTO) 0.6 K/uL (0.8-1.0); MONOCYTES % (AUTO) 5.9 % (1.7-9.3); NEUTROPHILS # (AUTO) 8.3 K/uL (1.8-7.7); NEUTROPHILS % (AUTO) 84.6 % (42.2-75.2); PLATELET COUNT (AUTO) 187 K/uL (140-450); RED BLOOD CELL COUNT(AUTO) 4.93 MIL/uL (4.20-6.10); RED CELL DISTRIBUTION WIDTH 26.9 % (11.6-13.7); WHITE BLOOD COUNT (AUTO) 9.8 K/uL (4.8-10.8)
[2023-02-24 10:06] LABS: ANION GAP 10.3 (8-16); CALCIUM 9.3 mg/dL (8.5-10.1); CARBON DIOXIDE 36.1 mmol/L (21-32); CREATININE 1.5 mg/dL (0.6-1.3); POTASSIUM 4.4 mmol/L (3.5-5.1)
== END 2023-02-24 11:55 | disposition home or self-care (01) | DRG 871 ==
LOC: MED 07:11 → MTU 09:38
PROVIDERS: ADMIT Family Medicine; ATTEND Family Medicine
PROC: 5A09357 Assistance with Respiratory Ventilation, Less than 24 Consecutive Hours, Continuous Positive Airway Pressure (ICD-10-PCS; principal; 2023-02-21)
PROC: 5A09357 Assistance with Respiratory Ventilation, Less than 24 Consecutive Hours, Continuous Positive Airway Pressure (ICD-10-PCS; 2023-02-23)
PROC: 5A09357 Assistance with Respiratory Ventilation, Less than 24 Consecutive Hours, Continuous Positive Airway Pressure (ICD-10-PCS; 2023-02-24)
DX: A41.9 Sepsis, unspecified organism (principal); J96.21 Acute and chronic respiratory failure with hypoxia; J96.22 Acute and chronic respiratory failure with hypercapnia; J44.1 Chronic obstructive pulmonary disease with (acute) exacerbation; Z68.41 Body mass index [BMI] 40.0-44.9, adult; E44.0 Moderate protein-calorie malnutrition; J10.1 Influenza due to other identified influenza virus with other respiratory manifestations; Z20.822 Contact with and (suspected) exposure to COVID-19
CPT/HCPCS: 36415; 36600; 71045; 80048; 80076; 81003; 82803; 83690; 83880; 84484; 85025; 87040; 87081; 87086; 93005; 94640; 94660; 96374; 96375; 99291; C9113; J0696; J1644; J1940; J1956; J2060; J2270; J2920; J2930; J7613; J7626; J7644

== ENCOUNTER 2023-03-21 17:08 | Inpatient (IN) | payer OTHER ==
[~2023-03-21] VITALS: Ht 182.9 cm; Wt 156.9 kg
[~2023-03-21 17:08] MED LIST changes: +TAM75 PO
[2023-03-21 17:25] VITALS: BP 145/70; PULSE 82; RESP 26; TEMP 97.9; O2SAT 99
[2023-03-21] MEDS ORDERED: PIPERACILLIN/TAZOBACTAM 3.375 GM VIAL IV ONE (17:42)
[2023-03-21] MEDS ORDERED: OLAN15TA1 PO (17:44)
[2023-03-21] MEDS ORDERED: ATI.5 PO (17:44)
[2023-03-21] MEDS ORDERED: SPIMDI INH (17:44)
[2023-03-21] MEDS ORDERED: PROM473S5 PO (17:44)
[2023-03-21] MEDS ORDERED: ROPI1TAB40 PO (17:44)
[2023-03-21] MEDS ORDERED: METH4TAB1 PO (17:44)
[2023-03-21] MEDS: PIPERACILLIN/TAZOBACTAM 3.375 GM in DEXT 5% MINI-BAG PLUS 50 ML IV ONE (17:56)
[2023-03-21] MEDS: methylPREDNISolone SS 125 MG/2 ML VIAL IVP ONE (17:58)
[2023-03-21] MEDS: FUROSEMIDE 40 MG/4 ML VIAL IVP ONE (18:06)
[2023-03-21 18:09] LABS: BASOPHILS % (AUTO) 0.4 % (0.0-2.0); EOSINOPHILS % (AUTO) 0.6 % (0.0-4.0); HEMATOCRIT 42.2 % (36-52); HEMOGLOBIN 13.9 g/dL (12.0-18.0); LYMPHOCYTES # (AUTO) 1.5 K/uL (2.0-11.5); LYMPHOCYTES % (AUTO) 21.3 % (20.5-51.1); MEAN CORPUSCULAR HEMOGLOBIN 32 pg (27-31); MEAN CORPUSCULAR HGB CONC 33 g/dL (33-37); MEAN CORPUSCULAR VOLUME 96.2 fL (80-94); MONOCYTES # (AUTO) 0.5 K/uL (0.8-1.0); MONOCYTES % (AUTO) 7.7 % (1.7-9.3); NEUTROPHILS # (AUTO) 4.9 K/uL (1.8-7.7); PLATELET COUNT (AUTO) 168 K/uL (140-450); RED BLOOD CELL COUNT(AUTO) 4.38 MIL/uL (4.20-6.10); RED CELL DISTRIBUTION WIDTH 20.8 % (11.6-13.7)
[2023-03-21 18:22] LABS: ANION GAP 7.4 (8-16); CALCIUM 8.6 mg/dL (8.5-10.1); CARBON DIOXIDE 35.4 mmol/L (21-32); CREATININE 0.9 mg/dL (0.6-1.3); POTASSIUM 4.8 mmol/L (3.5-5.1)
[2023-03-21 18:29] LABS: ALANINE AMINOTRANSFERASE 29 U/L (12-78); ALBUMIN 2.8 g/dL (3.4-5.0); ALKALINE PHOSPHATASE 53 U/L (50-136); ASPARTATE AMINOTRANSFERASE 18 U/L (15-37); BILIRUBIN,DIRECT 0.1 mg/dL (0.0-0.3); TOTAL BILIRUBIN 0.3 mg/dL (0.0-1.0); TOTAL PROTEIN, SERUM 6.5 g/dL (6.4-8.2)
[2023-03-21 18:30] VITALS: BP 95/55; PULSE 72; RESP 36; O2SAT 95
[2023-03-21 18:32] LABS: INR 1.01 (0.8-1.2); PARTIAL THROMBOPLASTIN TIME 22.7 secs (22-35.6); PROTHROMBIN TIME 10.6 secs (10.8-13.4)
[2023-03-21 18:41] LABS: LACTIC ACID < 0.3 mmol/L (0.4-2.0)
[2023-03-21 20:50] LABS: APPEARANCE,URINE CLEAR (CLEAR); BILIRUBIN,URINE NEGATIVE (NEGATIVE); BLOOD, URINE NEGATIVE (NEGATIVE); COLOR,URINE YELLOW (YELLOW); LEUKOCYTE ESTERASE ,URINE NEGATIVE (NEGATIVE); NITRITE, URINE NEGATIVE (NEGATIVE); PROTEIN,URINE NEGATIVE (NEGATIVE); UGLUCOSE NEGATIVE (NEGATIVE); UROBILINOGEN,URINE 0.2 EU/dL (0.2 - 1)
[2023-03-21] MEDS ORDERED: MORPHINE SULFATE 4 MG/ML SYR ONE ×2 (20:54→21:29)
[2023-03-21] MEDS ORDERED: NACL 0.9% 1,000 ML IV ONE ×2 (21:25→22:25)
[2023-03-21] MEDS ORDERED: VANCOMYCIN PER PHARMACY MC PRN (21:25)
[2023-03-21] MEDS: MORPHINE SULFATE 4 MG/ML SYR IVP ONE (21:34)
[2023-03-21] MEDS ORDERED: hydrALAZINE 20 MG/ML VIAL IVP PRN (22:55)
[2023-03-21 23:35] VITALS: PULSE 98; RESP 25; O2SAT 95
[2023-03-21] MEDS: ALBUTEROL SULFATE/IPRATROPIU 3 ML SOL IH PRN (23:35)
[2023-03-22] VITALS (8 sets, daily range): BP systolic 124–125; BP diastolic 83–95; PULSE 66–78; RESP 16–22; TEMP 97.4; O2SAT 92–100
[2023-03-22] MEDS ORDERED: NACL 0.9% 1,000 ML IV SCH (01:00)
[2023-03-22] MEDS ORDERED: PIPERACILLIN/TAZOBACTAM 3.375 GM in DEXTROSE 5% 50 ML IV SCH (01:00)
[2023-03-22] MEDS: MORPHINE SULFATE 2 MG/ML SYR IVP PRN (03:24)
[2023-03-22 06:55] LABS: BASOPHILS # (AUTO) 0.1 K/uL (0.00-0.22); BASOPHILS % (AUTO) 0.9 % (0.0-2.0); EOSINOPHILS % (AUTO) 0.1 % (0.0-4.0); HEMATOCRIT 44.9 % (36-52); HEMOGLOBIN 14.5 g/dL (12.0-18.0); LYMPHOCYTES % (AUTO) 12.5 % (20.5-51.1); MEAN CORPUSCULAR HEMOGLOBIN 31 pg (27-31); MEAN CORPUSCULAR HGB CONC 32 g/dL (33-37); MONOCYTES # (AUTO) 0.6 K/uL (0.8-1.0); MONOCYTES % (AUTO) 7.2 % (1.7-9.3); NEUTROPHILS # (AUTO) 6.6 K/uL (1.8-7.7); NEUTROPHILS % (AUTO) 79.3 % (42.2-75.2); PLATELET COUNT (AUTO) 183 K/uL (140-450); RED BLOOD CELL COUNT(AUTO) 4.63 MIL/uL (4.20-6.10); RED CELL DISTRIBUTION WIDTH 21.1 % (11.6-13.7); WHITE BLOOD COUNT (AUTO) 8.3 K/uL (4.8-10.8)
[2023-03-22] MEDS: ACETAMINOPHEN EXTRA STRENGTH 500 MG TAB PO PRN (07:00)
[2023-03-22 07:11] LABS: INR 0.99 (0.8-1.2); PARTIAL THROMBOPLASTIN TIME 23.2 secs (22-35.6); PROTHROMBIN TIME 10.4 secs (10.8-13.4)
[2023-03-22 07:16] LABS: ANION GAP 6.9 (8-16); CALCIUM 8.9 mg/dL (8.5-10.1); CARBON DIOXIDE 40.6 mmol/L (21-32); CREATININE 0.9 mg/dL (0.6-1.3); POTASSIUM 4.5 mmol/L (3.5-5.1); TOTAL BILIRUBIN 0.4 mg/dL (0.0-1.0); TOTAL PROTEIN, SERUM 7.1 g/dL (6.4-8.2)
[2023-03-22] MEDS: FUROSEMIDE 20 MG/2 ML VIAL IVP SCH (09:05)
[2023-03-22] MEDS: ALBUTEROL SULFATE/IPRATROPIU 3 ML SOL IH SCH (09:15)
[2023-03-22] MEDS ORDERED: ALBUTEROL SULFATE/IPRATROPIU 3 ML SOL IH PRN (09:15)
[2023-03-22] MEDS: predniSONE 20 MG TAB PO SCH (10:14)
[2023-03-22] MEDS: busPIRone 5 MG TAB PO SCH (11:53)
[2023-03-22] MEDS: DIVALPROEX 500 MG TABEC PO SCH (11:54)
[2023-03-22] MEDS: LORazepam 0.5 MG TAB PO PRN (11:55)
[2023-03-22] MEDS: AZITHROMYCIN 500 MG in DEXTROSE 5% 250 ML IV SCH (11:56)
[2023-03-22] MEDS ORDERED: MAG SULF 2000 MG/WATER PREMIX 50 ML IV PRN (13:15)
[2023-03-22] MEDS ORDERED: ZOLPIDEM 10 MG TAB PO PRN (13:15)
[2023-03-22] MEDS ORDERED: ONDANSETRON 4 MG/2 ML VIAL IVP PRN (13:15)
[2023-03-22] MEDS ORDERED: DEXTROSE 50% 50 ML SYR IVP PRN (13:25)
[2023-03-22] MEDS ORDERED: INSULIN LISPRO SLIDING SCALE 100 UNITS/ML VIAL SUBQ PRN (13:25)
[2023-03-22] MEDS: HYDROcodone/APAP 5/325 MG 1 TAB TAB PO PRN (14:54)
[2023-03-22] MEDS: BLOOD GLUCOSE MONITORING 1 DEV DEV FS SCH (16:32)
[2023-03-22] MEDS: OLANZapine 5 MG TAB PO SCH (20:22)
[2023-03-22] MEDS: carvediloL 6.25 MG TAB PO SCH (20:23)
[2023-03-23] VITALS (8 sets, daily range): BP systolic 108–152; BP diastolic 76–92; PULSE 72–95; RESP 16–20; TEMP 96.8–97.5; O2SAT 89–100
[2023-03-23 06:25] LABS: BASOPHILS # (AUTO) 0.1 K/uL (0.00-0.22); BASOPHILS % (AUTO) 0.7 % (0.0-2.0); EOSINOPHILS # (AUTO) 0.1 K/uL (0-0.4); EOSINOPHILS % (AUTO) 0.8 % (0.0-4.0); HEMATOCRIT 45.8 % (36-52); LYMPHOCYTES # (AUTO) 2.6 K/uL (2.0-11.5); MEAN CORPUSCULAR HEMOGLOBIN 32 pg (27-31); MEAN CORPUSCULAR HGB CONC 33 g/dL (33-37); MEAN CORPUSCULAR VOLUME 96.8 fL (80-94); MONOCYTES # (AUTO) 0.8 K/uL (0.8-1.0); PLATELET COUNT (AUTO) 136 K/uL (140-450); RED BLOOD CELL COUNT(AUTO) 4.73 MIL/uL (4.20-6.10); RED CELL DISTRIBUTION WIDTH 20.5 % (11.6-13.7); WHITE BLOOD COUNT (AUTO) 7.6 K/uL (4.8-10.8)
[2023-03-23 06:59] LABS: ALBUMIN 3.1 g/dL (3.4-5.0); ANION GAP 9.1 (8-16); CALCIUM 9.5 mg/dL (8.5-10.1); CARBON DIOXIDE 38.6 mmol/L (21-32); CREATININE 0.9 mg/dL (0.6-1.3); MONOCYTES % (AUTO) 11.1 % (1.7-9.3); NEUTROPHILS % (AUTO) 52.4 % (42.2-75.2); POTASSIUM 4.7 mmol/L (3.5-5.1); TOTAL BILIRUBIN 0.5 mg/dL (0.0-1.0); TOTAL PROTEIN, SERUM 7.3 g/dL (6.4-8.2)
[2023-03-23] MEDS: LOSARTAN 25 MG TAB PO SCH (09:16)
[2023-03-23] MEDS: PANTOPRAZOLE 40 MG TABEC PO SCH (09:17)
[2023-03-23] MEDS: ATORVASTATIN 20 MG TAB PO SCH (09:19)
== END 2023-03-23 14:30 | disposition home or self-care (01) | DRG 871 ==
LOC: MED 17:08 → MMU 21:42 → MTU 03-22 06:32
PROVIDERS: ADMIT Student in an Organized Health Care Education/Training Program; ATTEND Student in an Organized Health Care Education/Training Program
PROC: 5A09357 Assistance with Respiratory Ventilation, Less than 24 Consecutive Hours, Continuous Positive Airway Pressure (ICD-10-PCS; principal; 2023-03-21)
DX: A41.9 Sepsis, unspecified organism (principal); J15.69 Pneumonia due to other Gram-negative bacteria; J96.21 Acute and chronic respiratory failure with hypoxia; J96.22 Acute and chronic respiratory failure with hypercapnia; J44.0 Chronic obstructive pulmonary disease with (acute) lower respiratory infection; J81.1 Chronic pulmonary edema; J44.1 Chronic obstructive pulmonary disease with (acute) exacerbation; E46 Unspecified protein-calorie malnutrition; Z68.42 Body mass index [BMI] 45.0-49.9, adult; I11.0 Hypertensive heart disease with heart failure; E66.9 Obesity, unspecified; Z99.81 Dependence on supplemental oxygen; I50.9 Heart failure, unspecified
CPT/HCPCS: 36415; 71045; 80048; 80053; 80076; 81003; 82948; 83605; 83880; 84484; 85025; 85610; 85730; 87081; 94640; 96365; 96375; 99291; J0456; J0696; J1644; J1940; J2270; J2543; J2930; J7060; J7512